=== PATIENT | female | born 1995 | race Caucasian/White ===

== ENCOUNTER 2017-06-30 20:48 | Emergency (ER) | payer OTHER ==
[~2017-06-30] VITALS: Ht 149.9 cm; Wt 56.7 kg
[2017-06-30 21:02] VITALS: Ht 149.9 cm; Wt 56.7 kg
[2017-06-30 22:32] LABS: BASOPHIL % 0.5 % (0-2); PLATELET COUNT 231 x10^3mcL (130-400); RED CELL DISTRIBUTION WIDTH 13.1 % (11.5-14.5)
[2017-06-30 23:34] VITALS: BP 90/54
== END 2017-07-01 00:41 | disposition home or self-care (01) ==
LOC: ED 20:48
PROVIDERS: Emergency Medicine
DX: O20.0 Threatened abortion (principal); O20.8 Other hemorrhage in early pregnancy; E03.9 Hypothyroidism, unspecified; Z3A.01 Less than 8 weeks gestation of pregnancy
CPT/HCPCS: 36415